=== PATIENT | male | born 1955 ===

== ENCOUNTER → 2025-03-30 06:23 | Day surgery (SDC) | payer BC, SELFPAY | LOC: GI 06:23 | PROVIDERS: ATTENDING PHYSICIAN Internal Medicine; FAMILY PHYSICIAN Family Medicine | DX: Z12.11 Encounter for screening for malignant neoplasm of colon (principal); D12.2 Benign neoplasm of ascending colon; D12.3 Benign neoplasm of transverse colon; K57.30 Diverticulosis of large intestine without perforation or abscess without bleeding; K62.1 Rectal polyp; N40.0 Benign prostatic hyperplasia without lower urinary tract symptoms | CPT/HCPCS: 45385; 45380; 88305 ==

== ENCOUNTER 2025-06-12 06:09 | Day surgery (SDC) | payer BC, SELFPAY ==
[2025-06-12 10:31] VITALS: BMI 27.4
[2025-06-12 10:32] VITALS: BMI 27.4
[2025-06-12 10:35] VITALS: BP 138/91
[2025-06-12 13:00] VITALS: BP 131/93
[2025-06-12 13:15] VITALS: BP 119/82
[2025-06-12 13:30] VITALS: BP 133/94
== END 2025-06-12 13:50 | disposition home or self-care (01) ==
LOC: SDS 06:09
PROVIDERS: ATTENDING PHYSICIAN Internal Medicine Gastroenterology
DX: D12.2 Benign neoplasm of ascending colon (principal); K57.30 Diverticulosis of large intestine without perforation or abscess without bleeding; K64.0 First degree hemorrhoids
CPT/HCPCS: 45390; 88305